=== PATIENT | male | born 1970 | race Caucasian/White ===

== ENCOUNTER 2023-06-03 23:59 | Emergency (ER) | payer SELFPAY ==
[2023-06-04 00:21] VITALS: BP 157/86; TEMP 99.5; BMI 28.3
[2023-06-04] MEDS ORDERED: ACETAMINOPHEN 500 MG TABLET (FP) PO ONE (01:02)
[2023-06-04] MEDS ORDERED: DEXAMETHASONE LIQUID 0.5 MG/5 ML PO ONE (01:02)
[2023-06-04] MEDS ORDERED: ACETAMINOPHEN 500 MG TABLET (FP) ONE (01:06)
[2023-06-04] MEDS ORDERED: DEXAMETHASONE SOD PHOSPHATE 10 MG/1 ML VIAL ONE (01:07)
[2023-06-04 01:45] VITALS: PULSE 114; RESP 19
== END 2023-06-04 02:37 | disposition home or self-care (01) ==
LOC: JER 23:59
DX: R05.9 Cough, unspecified (principal); R07.0 Pain in throat; M79.10 Myalgia, unspecified site; U07.1 COVID-19; J02.9 Acute pharyngitis, unspecified; R09.89 Other specified symptoms and signs involving the circulatory and respiratory systems; R50.9 Fever, unspecified; Z20.822 Contact with and (suspected) exposure to COVID-19
CPT/HCPCS: 0241U-QW; 87651; 99283-25